=== PATIENT | female | born 1995 | race American Indian/Alaskan Native ===

== ENCOUNTER 2021-11-25 18:47 | Outpatient (CLI) | payer OTHER, MEDICAID ==
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
[2021-11-26] MEDS ORDERED: SODIUM CHLORIDE 0.9% 1000 ML 1,000 ML IV ONE (00:15)
[2021-11-26] MEDS ORDERED: ACETAMINOPHEN 500 MG TAB PO ONE (01:55)
[2021-11-26 02:36] VITALS: BP 86/49
== END 2021-11-26 03:30 | disposition home or self-care (01) ==
LOC: TRG 18:47 → APU 18:48 → TRG 11-26 03:30
PROVIDERS: ATTEND Obstetrics & Gynecology
DX: O60.03 Preterm labor without delivery, third trimester (principal); O26.893 Other specified pregnancy related conditions, third trimester; V89.2XXA Person injured in unspecified motor-vehicle accident, traffic, initial encounter; O99.013 Anemia complicating pregnancy, third trimester; D64.9 Anemia, unspecified; Z3A.30 30 weeks gestation of pregnancy; Y93.89 Activity, other specified; Y92.89 Other specified places as the place of occurrence of the external cause; Y99.8 Other external cause status
CPT/HCPCS: 36415; 59025; 76816; 76817; 76819; 82731; 96360; 96361; J7030